=== PATIENT | male | born 2005 | race Hispanic/Latino ===

== ENCOUNTER 2024-11-19 11:13 | Emergency (ER) | payer SELFPAY ==
[~2024-11-19] VITALS: Ht 167.6 cm; Wt 64.9 kg
[2024-11-19] MEDS ORDERED: TYLENOL325 MG PO (11:40)
[2024-11-19] MEDS ORDERED: MAALOX MAXIMUM355 ML PO (11:40)
[2024-11-19] MEDS ORDERED: FAMOTIDINE20 MG PO (11:40)
[2024-11-19] MEDS ORDERED: ONDANSETRON ODT4 MG PO (11:40)
[2024-11-19] MEDS: ONDANSETRON HCL 4 MG ORAL DISINTEGRATING TAB PO ONE (11:41)
[2024-11-19] MEDS: ACETAMINOPHEN 325 MG TAB PO ONE (11:42)
[2024-11-19 11:58] VITALS: PULSE 69; RESP 16; TEMP 98.4; O2SAT 98
== END 2024-11-19 11:58 | disposition home or self-care (01) ==
LOC: FSED 11:22
DX: R11.2 Nausea with vomiting, unspecified (principal); B34.9 Viral infection, unspecified; R05.9 Cough, unspecified; I10 Essential (primary) hypertension; J45.909 Unspecified asthma, uncomplicated; F41.9 Anxiety disorder, unspecified; Z11.52 Encounter for screening for COVID-19
CPT/HCPCS: 0223U; 87400; 99283; Q0162